=== PATIENT | female | born 1960 | race Caucasian/White ===

== ENCOUNTER 2017-11-16 09:42 | Day surgery (SDC) | payer BC ==
[~2017-11-16] VITALS: Ht 165.1 cm; Wt 95.9 kg
[~2017-11-16 09:42] MED LIST: LEXAPRO20 MG PO; MAGNESIUM100 MG PO; VITAMIN D-32000 UNI2 PO; WELLBUTRIN XL300 MG PO; WOMEN'S DAILY1 EAC4 PO; YUVAFEM10 MCG VG
[2017-11-16 10:16] VITALS: BP 119/65
[2017-11-16 14:44] VITALS: BP 138/64
[2017-11-16 15:27] VITALS: BP 161/84
== END 2017-11-16 15:30 | disposition home or self-care (01) ==
LOC: SDC 09:42
DX: S83.242A Other tear of medial meniscus, current injury, left knee, initial encounter (principal); M94.262 Chondromalacia, left knee; M17.12 Unilateral primary osteoarthritis, left knee; X50.1XXA Overexertion from prolonged static or awkward postures, initial encounter; Y93.H2 Activity, gardening and landscaping; Y92.007 Garden or yard of unspecified non-institutional (private) residence as the place of occurrence of the external cause; Z88.0 Allergy status to penicillin
CPT/HCPCS: J0690; J2250; J2405